=== PATIENT | female | born 1985 | race Caucasian/White ===

== ENCOUNTER 2017-10-29 17:16 | Inpatient (IN) ==
[~2017-10-29 17:16] MED LIST: *HR* Nalbuphine 10 MG/ML AMPUL IVP PRN; Famotidine 20 MG/2 ML VIAL IVP PRN; Metoclopramide 10 MG/2 ML VIAL IVP PRN; Naloxone 0.4 MG/ML INJ IVP PRN; Ondansetron 4 MG/2 ML VIAL IVP PRN
[2017-10-29] MEDS ORDERED: Ringers Solution, Lactated 1,000 ML IVC SCH (17:30)
[2017-10-29] MEDS ORDERED: Oxytocin 20 units/ LR 1000 mL 20 UNIT/1,000 ML BAG IVC SCH (18:30)
[2017-10-29 18:31] LABS: Basophils % 0.2 %; Eosinophils # 0.1 K/mcL (0.0-0.6); Eosinophils % 0.9 %; Hematocrit 34.4 % (35.3-44.9); Hemoglobin 11.4 g/dL (11.5-15.4); Immature Granulocytes % 0.5 % (0-4); Lymphocytes # 1.3 K/mcL (0.6-4.6); Lymphocytes % 12.5 %; Mean Corpuscular HGB Conc 33.1 g/dL (31.6-35.5); Mean Corpuscular Hemoglobin 29.7 pg (28.0-33.3); Mean Corpuscular Volume 89.6 fL (83.0-100.0); Monocytes # 0.7 K/mcL (0.0-1.3); Monocytes % 6.4 %; Platelet Count 185 K/mcL (140-400); Red Blood Count 3.84 M/mcL (3.82-4.97); Red Cell Distribution Width 13.9 % (11.5-14.5); Segmented Neutrophils % 79.5 %
[2017-10-29] MEDS ORDERED: Oxytocin 20 units/ LR 1000 mL 20 UNIT/1,000 ML BAG IVC ONE (18:33)
[2017-10-29 18:37] LABS: Amphetamine Screen,Urine Negative ng/mL (Cutoff=1000); Barbiturate Screen,Urine Negative ng/mL (Cutoff=200); Benzodiazepines Screen,Urine Negative ng/mL (Cutoff=200); Cannabinoid Screen,Urine Negative ng/mL (Cutoff = 50); Cocaine Screen,Urine Negative ng/mL (Cutoff= 300); Opiate Screen,Urine Negative ng/mL (Cutoff=300); Phencyclidine Screen,Urine Negative ng/mL (Cutoff=25)
--- NOTE | 2017-10-29 18:47 | OB/GYN History & Physical ---
Date of Encounter: 10/29/17 Time of Encounter: 18:44 Assessment and Plan (1) 39 weeks gestation of Current visit: Yes Status: Acute The patient has received care throughout the and has been meeting milestones, compliant with care (2) Spontaneous onset of labor Current visit: Yes Status: Acute Patient has had spontaneous rupture of membranes without spontaneous contractions or cervical change. (3) Spontaneous rupture of membranes Current visit: Yes Status: Acute Confirmed on exam. Patient has been observed without onset of contractions. She is agreeable to start IV Pitocin (4) Obesity complicating in third trimester Current visit: Yes Status: Acute Glucose screening has been reassuring History of Present Illness Chief complaint: 39 week , SROM HPI: Ms. Michel is a 32 year old female with an EDC of 10/30/17 at 39 weeks 6 days, who presents to labor and delivery with spontaneous rupture membranes at 1530 today with a large gush of fluid, small amount of fluid seen at 0930 today as well. No vaginal bleeding, no contractions. Fetus active. The patient arrived to labor and delivery and her cervical exam was unchanged from yesterday in the office. She previously declined an induction of labor. was complicated by a history of polyhydramnios in her previous and obesity. She had normal glucose screening. Her weight gain was approximately 30 pounds. Her insurance did not cover care well and she had her anatomy scan through [facility]. Her blood type is O+, she is rubella immune, varicella immune and GBS negative. Past Med Surg Social Fam HX - Past Medical History Source: patient, old records reviewed Medical history: non-contributory (Seasonal allergies) Psychiatric history: no psych history - Past Surgical History Surgical History: other (Oral surgery and colposcopy) - Social History Smoking Status: Never smoker Smokeless Tobacco Status: No Alcohol use: none Drug use: none Occupational status: unemployed Current living situation: Home - Independent Activity Level: Independent ambulation Recent Out of Country Travel Within the Last 8 Weeks: No Exposure or Possible Exposure to Illness During Travel: No - Family History Mother Living Status: Still Living Hx Family Cardiac Disorders: No Hx Family Respiratory Disorders: No Hx Family Cancer: No Hx Family GI Disorders: No Hx Family Genitourinary Disorders: No Hx Family Endocrine Disorder: Yes (DM) Hx Family Musculoskeletal Disorders: No Hx Family Neuromuscular Disorders: No Hx Family Neurologic Disorders: No Hx Family HEENT Disorders: No Hx Family Autoimmune Disorders: No Hx Family Reproductive Disorders: No Hx Family Psychosocial Disorders: No Hx Family Medical Disorders: No Obstetrical History - Pregnancies : 4 Term: 3 Livin - History/Complications History/Complications: All previous children Ray pounds 12 ounces. Polyhydramnios without identified etiology in previous Medications and Allergies 3 Allergy/AdvReac Type Severity Reaction Status Date / Time No Known Allergies Allergy Verified 10/29/17 17:51 Review of System OB All systems PM: reviewed and no additional remarkable complaints except as stated - Constitutional Constitutional ROS IM: as per HPI Exam - Vital Signs Vital signs: Afebrile, vital signs stable. heart tones 120s baseline and CAT 1. [place] shows no retractions, some irritability. - Constitutional Constitutional: well developed, well nourished, no acute distress, obese - HEENT HEENT: Normocephaly, Mucus Membranes Moist - Neck Neck exam: normal inspection, supple - Lungs Respiratory exam: CTAB - Cardiovascular Cardiovascular exam: RRR - Breasts Breast: bilateral: normal (Gravid bilateral) - Abdomen Abdomen: Present: bowel sounds normal, gravid, non tender - Extremities Extremities exam: normal inspection, warm Deep Tendon Reflex Grade: 2+ Normal - Vulva Vulva: bilateral: normal - Cervix Dilation: 5 Effacement: 70 Station: -2 - Anus/Rectum Anus/Rectum: Present: normal perianal skin Results Result Diagrams: 10/29/17 17:40 Abnormal lab results Hgb 11.4 g/dL (11.5-15.4) L 10/29/17 17:40 Hct 34.4 % (35.3-44.9) L 10/29/17 17:40 All other labs normal. - VTE Reasons for not Prescribing Prophylaxis: Treatment not Indicated - Low risk for VTE
--- NOTE | 2017-10-29 19:42 | Anesthesia Evaluation PreOp ---
Date of Encounter: 10/29/17 Time of Encounter: 19:21 - Past History Planned Operation: labor epidural Cardiac History: Denies any Significant Hx Pulmonary History: Denies Any Significant HX [employer] History: Denies Any Significant HX Other Medical History: Denies Any Significant HX, Other (morbid obesity) Anesthesia History: No Prior Anesthetic Complications, Past Anesthesia ( sedation for oral surgery, no problems. 3 previous epidurals without problems. Never had GA, no FHAP.) Alcohol Use: none Drug use: none Medications and Allergies 3 Allergy/AdvReac Type Severity Reaction Status Date / Time No Known Allergies Allergy Verified 10/29/17 17:51 - Meds/Allergy Pre-op Review Medications Reviewed: Yes Allergies Reviewed: Yes Beta Blockers on Current Med List: No Anesthesia Results - Labs 10/29/17 17:40 Anesthesia Exam VSS and FHTs stable. Height: 5'0" Weight: 97kg, BMI 41.3 NPO (# of Hours): 6 Pain Scale: 3 Pain Scale Used: Numeric (1 - 10) - HEENT Pupil (Motor): Pupils equal, EOMI Mallampati: II Teeth: Normal, Prosthesis (implant right upper incisor) Oral Opening: Greater than 3 - [employer] LOC: Oriented [employer] Motor: Normal RUE, Normal LUE, Normal RLE, Normal LLE, Normal Face [employer] Sensory: Normal: RUE, LUE, RLE, LLE, Face - Cardiac Rhythm: Regular - Pulmonary Breath Sounds: bilateral Clear Respiratory Effort: Symmetrical Anesthesia Assess/Plan ASA Score: 3 (BMI 41.3) Modified [place] Scale for Level of Consciousness: Cooperative, oriented, and tranquil Anesthetic Plan: Regional Monitoring Plan: Standard Monitors
[2017-10-29] MEDS ORDERED: *HR* FentaNYL (PF) 100 MCG/2 ML VIAL EP ONE (19:46)
[2017-10-29] MEDS ORDERED: Bupivacaine-MPF 0.25% 10 ML VIAL EP ONE (19:46)
[2017-10-29] MEDS ORDERED: Epidural Premix (fent/bupiv) 110 ML EP SCH (20:00)
--- NOTE | 2017-10-29 22:46 | OB Labor Progress Note ---
Date of Encounter: 10/29/17 Time of Encounter: 22:44 Labor Progress Note - Subjective Subjective: Pt appreciating contractions - Vital Signs Vital Signs: afeb, 127/89 - Heart Tones Heart Tones: 120s baseline, CAT1 - [place]: irreg, up to q2' on PIT - Interventions Interventions: 39 wk 6 day IUP w/ SROM - Plan Plan: continue augmentation, anticipate . Pain management as requested
--- NOTE | 2017-10-29 23:41 | OB/GYN Procedure Note ---
Delivery - Delivery Date: 10/29/17 Provider: Nicolette Smith Intrapartum events: none Delivery induction: none Delivery augmentation: pitocin Delivery monitor: external FHT, external uterine Anesthesia: none Quantitated Blood Loss: 100 - Infant (s) Infant A Infant Delivery Date: 10/29/17 Delivery Time: 23:10 Presentation: vertex Position: BYRON Route of delivery: Gender: Female Viability: Viable Pounds: 8 Ounces: 12 Weight Gram: 3.985 kg at 1 minute: 9 at 5 mins: 9 Shoulder Dystocia: not encountered Specimens collected: cord blood Placenta: spontaneous Cord: true knot, 3 umbilical vessels - Repair Episiotomy: none Laceration Description: None, Superficial - Complications Delivery complications: none Delivery comments: The patient was complete and pushing with epidural anesthesia with a spontaneous vaginal delivery in the BYRON position of a vigorous female infant weighing 8 lbs. 12 oz. with Apgars of 9 at 1 minute and 9 at 5 [address] was [address] on the maternal abdomen. The cord was clamped and cut after pulsations ceased. Cord blood obtained. The placenta was delivered spontaneous and intact. Three-vessel cord confirmed. No lacerations noted. Estimated blood loss 100 mL, complications none - Disposition Mom disposition: stable in LDR disposition: stable in LDR
[2017-10-29] MEDS ORDERED: Acetaminophen 325 MG TABLET PO ONE (23:52)
[2017-10-30] MEDS ORDERED: Acetaminophen 325 MG TABLET PO PRN (01:53)
[2017-10-30] MEDS ORDERED: Oxytocin 20 units/ LR 1000 mL 20 UNIT/1,000 ML BAG IVC SCH (01:53)
[2017-10-30] MEDS ORDERED: Rho Immune Globulin 1,500 UNIT SYRINGE IM PRN (01:53)
[2017-10-30] MEDS: Ibuprofen 600 MG TABLET PO SCH ×2 (04:39→19:44)
[2017-10-30] MEDS: Prenatal Vit/FA 1 EACH TABLET PO SCH (09:28)
--- NOTE | 2017-10-30 10:10 | Discharge Summary ---
Date of Encounter: 10/30/17 Time of Encounter: 10:08 - Discharge Diagnosis (1) Vaginal delivery Priority: Primary Status: Acute Comments: Pain well controlled with by mouth pain meds Tolerating regular diet Ambulating independently Voiding independently Passing flatus, no BM yet Lochia light Discharge home (2) Breast feeding status of mother Priority: Secondary Status: Acute Comments: Community resources provided - Discharge Medications Prescriptions: Ibuprofen [Motrin] 600 mg PO Q6HR #30 tablet Docusate [Colace] 100 mg PO BID #30 capsule Home Medications: Acetaminophen [Tylenol] 650 mg PO Q6HR PRN tablet 10/30/17 [Rx] Docusate [Colace] 100 mg PO BID #30 capsule 10/30/17 [Rx] Ibuprofen [Motrin] 600 mg PO Q6HR #30 tablet 10/30/17 [Rx] Vit/FA 1 each PO DAILY tablet 10/30/17 [Rx] Allergies/Adverse Reactions: 3 Allergy/AdvReac Type Severity Reaction Status Date / Time No Known Allergies Allergy Verified 10/29/17 17:51 Data Procedures and tests throughout hospitalization: Laboratory Tests 10/29/17 10/29/17 10/29/17 17:40 17:40 18:27 WBC 10.1 RBC 3.84 Hgb 11.4 L Hct 34.4 L MCV 89.6 MCH 29.7 MCHC 33.1 RDW 13.9 Plt Count 185 MPV 11.0 Immature Gran % 0.5 Seg Neutrophils % 79.5 Lymphocytes % 12.5 Monocytes % 6.4 Eosinophils % 0.9 Basophils % 0.2 Neutrophils # 8.0 Lymphocytes # 1.3 Monocytes # 0.7 Eosinophils # 0.1 Basophils # 0.0 Urine Opiates Screen Negative Ur Barbiturates Screen Negative Ur Phencyclidine Scrn Negative Ur Amphetamines Screen Negative U Benzodiazepines Scrn Negative Urine Cocaine Screen Negative U Marijuana (THC) Screen Negative Ur Drug Screen Interp See Below Hep Bs Antigen Nonreactive Labs on day of discharge: Labs from last 24 hours 10/29/17 10/29/17 10/29/17 18:27 17:40 17:40 WBC 10.1 RBC 3.84 Hgb 11.4 L Hct 34.4 L MCV 89.6 MCH 29.7 MCHC 33.1 RDW 13.9 Plt Count 185 MPV 11.0 Immature Gran % 0.5 Seg Neutrophils % 79.5 Lymphocytes % 12.5 Monocytes % 6.4 Eosinophils % 0.9 Basophils % 0.2 Neutrophils # 8.0 Lymphocytes # 1.3 Monocytes # 0.7 Eosinophils # 0.1 Basophils # 0.0 Urine Opiates Screen Negative Ur Barbiturates Screen Negative Ur Phencyclidine Scrn Negative Ur Amphetamines Screen Negative U Benzodiazepines Scrn Negative Urine Cocaine Screen Negative U Marijuana (THC) Screen Negative Ur Drug Screen Interp See Below Hep Bs Antigen Nonreactive Date of admission: 10/29/17 17:16 Consults: 10/30/17 01:53 Consult to Sleep Technician [CONS] Routine Comment: Vaginal delivery, consult needed Discharging clinician: Ashlyn Richards Anticipated date of discharge: 10/30/17 - Patient Status Disposition: Home, Self-Care Condition: Good Functional capacity at discharge: independent ambulation Overall status at discharge: patient is progressing back to baseline - Discharge Instructions Follow Up With: Nicolette Smith MD [Partnered Physician] - - Diet and Activity Activity: increase activity as tolerated Diet: regular diet Hospital Course Reason for admission: rupture of membranes, IUP at term Delivery: Episiotomy: none Laceration: none Other procedures: none complications: none Discharge diagnosis: IUP at term delivered baby: female Time Attestation: Total time spent providing and/or coordinating discharge services: Time Spent: Less than 30 minutes Exam - Constitutional Vitals: Temp Pulse Resp BP Pulse Ox 98.4 F 77 12 109/74 95 10/30/17 07:59 10/30/17 07:59 10/30/17 07:59 10/30/17 07:59 10/30/17 07:59 General appearance IM: A&O X 3 - Respiratory Respiratory exam: Present: CTAB - Cardiovascular Cardiovascular exam IM: Present: RRR, +S1, +S2 - GI/Abdominal GI/Abdominal exam IM: normal bowel sounds, no peritoneal signs - Rectal Rectal exam: deferred - Uterine Tone: Firm Uterus Position: At Umbilicus, Midline - Extremities Exam Extremities exam IM: Present: normal capillary refill, normal inspection, radial pulses palpable and symmetrical - Neurological Exam Neurological exam: alert, CN II-XII intact, normal gait, oriented X3, reflexes normal, no focal deficits, strengths equal and symetr throughout - Psychiatric Additional comments: Patient denies history of depression. Signs and symptoms of depression discussed and patient verbalizes understanding of when to seek help. - Other Additional findings: Breasts: Soft, nontender; nipples intact without erythema
[2017-10-31 08:08] VITALS: BP 115/79
[2017-10-31] MEDS: Prenatal Vit/FA 1 EACH TABLET PO SCH (08:33)
--- NOTE | 2017-10-31 09:40 | Event Note ---
Date of Encounter: 10/31/17 Time of Encounter: 09:40 Discharge instructions reviewed from yesterday. Patient reports she is feeling well and is ready to discharge home today. All questions asked and answered.
== END 2017-10-31 09:54 | disposition home or self-care (01) | DRG 775 ==
LOC: 1NENULAB → 1NENUOBS 10-30 03:28
PROVIDERS: ADMIT Obstetrics & Gynecology; ATTEND Obstetrics & Gynecology